=== PATIENT | female | born 1995 | race African-American/Black ===

== ENCOUNTER 2016-08-09 21:53 | Observation (INO) | payer MEDICAID ==
[~2016-08-09 21:53] MED LIST: ADDERALL 10 MG10 M1 PO; NO MEDICATIONS; PREDNISONE20 MG PO; PRENATAL CAPLE1 EACH PO; PROMETHAZINE12.5 M2 PO; ULTRAM50 MG PO; ZOFRAN4 M2 PO
== END 2016-08-09 23:35 ==
LOC: LDR 21:53
PROVIDERS: ADMIT Obstetrics & Gynecology
DX: O36.8120 Decreased fetal movements, second trimester, not applicable or unspecified (principal); O98.312 Other infections with a predominantly sexual mode of transmission complicating pregnancy, second trimester; A63.0 Anogenital (venereal) warts; Z3A.27 27 weeks gestation of pregnancy; Z79.899 Other long term (current) drug therapy